=== PATIENT | male | born 1990 | race American Indian/Alaskan Native ===

== ENCOUNTER 2016-11-13 18:07 | Emergency (ER) | payer MEDICAID ==
[2016-11-13 18:33] LABS: Urine Drugs of Abuse Note Disclamer
[2016-11-13 18:50] LABS: Bilirubin,Urine NEG (Negative); Blood,Urine NEG (Negative); Ketones,Urine NEG (Negative); Leukocyte Esterase,Urine NEG (Negative); Mucus,Urine FEW /HPF; Nitrite,Urine NEG (Negative); Protein,Urine <15 mg/dL mg/dL (Negative); WBC,Urine < 1.0 /HPF (0.0-6.0)
[2016-11-13 19:06] LABS: Anion Gap 15 mmol/L; BUN/Creatinine Ratio 8.33; Blood Urea Nitrogen 10 mg/dL (9-20); Calcium 9.3 mg/dL (8.4-10.2); Carbon Dioxide 25 mmol/L (22-30); Chloride 104.1 mmol/L (98-107); Glucose 88 mg/dL (75-100); Potassium 4.1 mmol/L (3.6-5.0); Sodium 140 mmol/L (137-145)
[2016-11-13 19:22] LABS: Basophils % (Auto) 0.4 % (0.0-1.8); Eosinophils % (Auto) 2.4 % (0.0-4.3); Hematocrit 41.6 % (35.5-45.6); Hemoglobin 13.9 gm/dl (11.8-15.2); Mean Corpuscular HGB Conc 34 % (32-34); Mean Corpuscular Hemoglobin 31 pg (28-32); Mean Corpuscular Volume 93 fl (84-94); Platelet Count 169 K/mm3 (140-440); Red Blood Count 4.49 M/mm3 (3.65-5.03); Red Cell Distribution Width 14.2 % (13.2-15.2); White Blood Count 5.6 K/mm3 (4.5-11.0)
[2016-11-13 21:18] VITALS: BP 119/67
--- NOTE | 2016-11-13 21:55 | Emergency Department Report ---
ED Psych HPI - General Chief Complaint: Psych Stated Complaint: MH Time Seen by Provider: 11/13/16 19:27 Source: patient, EMS Mode of arrival: Stretcher - History of Present Illness Initial Comments: 26-year-old male with past medical history of depression presenting to the emergency department complaining of resolved SI. Patient states prior to emergency room arrival, he had received notification that he was no longer going to be considered for a job that he applied to. Patient states initially he was severely depressed and had thoughts of hurting himself however now he states that symptoms have resolved and he wants to reapply to other jobs and is motivated to find the right job that is a good fit for his lifestyle and his career. Patient is currently denying SI/HI/AH/VH. Patient denies drug use and states he has no access to weapons. MD Complaint: feels depressed -: Sudden Associated Psychiatric Symptoms: none Quality: resolved prior to arrival Worsens With: none Context: significant life stressor (rejected.) Associated Symptoms: denies other symptoms Treatments Prior to Arrival: none - Related Data Allergies Allergy/AdvReac Type Severity Reaction Status Date / Time No Known Allergies Allergy Unverified 10/04/14 22:58 ED Review of Systems ROS: Stated complaint: MH Other details as noted in HPI Comment: All other systems reviewed and negative Constitutional: denies: chills, fever Eyes: denies: eye pain, eye discharge, vision change ENT: denies: ear pain, throat pain Respiratory: denies: cough, shortness of breath, wheezing Cardiovascular: denies: chest pain, palpitations Endocrine: no symptoms reported Gastrointestinal: denies: abdominal pain, nausea, diarrhea Genitourinary: denies: urgency, dysuria Musculoskeletal: denies: back pain, joint swelling, arthralgia Skin: denies: rash, lesions Neurological: denies: headache, weakness, paresthesias Psychiatric: anxiety, depression. denies: auditory hallucinations, visual hallucinations, homicidal thoughts, suicidal thoughts Hematological/Lymphatic: denies: easy bleeding, easy bruising ED Past Medical Hx - Past Medical History Previous Medical History?: Yes Hx Psychiatric Treatment: Yes Additional medical history: schizophrenia. bipolar - Surgical History Past Surgical History?: No - Social History Smoking Status: Never Smoker Substance Use Type: None ED Physical Exam - General Limitations: No Limitations General appearance: alert, in no apparent distress - Head Head exam: Present: atraumatic, normocephalic - Eye Eye exam: Present: normal appearance - ENT ENT exam: Present: mucous membranes moist - Neck Neck exam: Present: normal inspection - Respiratory Respiratory exam: Present: normal lung sounds bilaterally. Absent: respiratory distress - Cardiovascular Cardiovascular Exam: Present: regular rate, normal rhythm. Absent: systolic murmur, diastolic murmur, rubs, gallop - GI/Abdominal GI/Abdominal exam: Present: soft, normal bowel sounds - Rectal Rectal exam: Present: deferred - Extremities Exam Extremities exam: Present: normal inspection - Back Exam Back exam: Present: normal inspection - Neurological Exam Neurological exam: Present: alert, oriented X3 - Psychiatric Psychiatric exam: Present: normal affect, normal mood, depressed. Absent: flat affect, manic, homicidal ideation, suicidal ideation - Skin Skin exam: Present: warm, dry, intact, normal color. Absent: rash ED Course Vital Signs 11/13/16 11/13/16 11/13/16 18:25 18:30 19:00 Temperature 98.9 F 98 F Pulse Rate 111 H 93 H Respiratory 18 18 18 Rate Blood Pressure 112/74 119/67 [Right] O2 Sat by Pulse 100 100 97 Oximetry - Reevaluation(s) Reevaluation #1: 11/13/16 21:53 Patient has been evaluated by rehabilitation psychologist Nancy who agrees with me that he does not meet 1013 criteria at this time and he is at low risk to harm himself or anyone else. ED Medical Decision Making - Lab Data Result diagrams: 11/13/16 18:37 11/13/16 18:37 - Medical Decision Making 26-year-old male with psych history of depression presenting to the Emergency Department with resolved SI. Patient admits initially wanted to hurt himself however he thought about it deeply and instead of hurting himself he wants to try to apply for different jobs and follow-up with his psychiatrist. At this time patient is well-appearing, does not appear to be in any acute mental state and is stable for discharge home. Patient has been evaluated by rehabilitation psychologist Ms. Cruz who agrees with me, he does not meet 1013 criteria at this time. Patient verbalized understanding of return precautions. Critical Care Time: No Critical care attestation.: If time is entered above; I have spent that time in minutes in the direct care of this critically ill patient, excluding procedure time. ED Disposition Clinical Impression: Depression Disposition: DC-01 TO HOME OR SELFCARE Is pt being admited?: No Does the pt Need Aspirin: No Condition: Stable Instructions: Depression (ED) Referrals: PRIMARY CARE, [Primary Care Provider] - 3-5 Days NEHAL JACKSON MD [Staff Physician] - 24 Hours Time of Disposition: 21:56
== END 2016-11-13 22:30 | disposition home or self-care (01) ==
LOC: ED 18:07 → EEVIPCON 18:07 → ED 22:30
DX: F32.9 Major depressive disorder, single episode, unspecified (principal); F31.9 Bipolar disorder, unspecified; F20.9 Schizophrenia, unspecified
CPT/HCPCS: 36415; 80048; 80307; 81001; 85025; 99284; G0480; 80320

== ENCOUNTER 2018-09-01 12:40 | Emergency (ER) | payer MEDICAID ==
[2018-09-01] MEDS ORDERED: HALDOL IM PRN (13:32)
[2018-09-01] MEDS ORDERED: ATIVAN IM PRN (13:32)
--- NOTE | 2018-09-01 13:36 | Emergency Department Report ---
ED General Adult HPI - General Chief complaint: Psych Stated complaint: PSYCH Time Seen by Provider: 09/01/18 13:24 Source: patient, EMS (ems notes not available at time of chart dictation) Mode of arrival: Stretcher Limitations: No Limitations - History of Present Illness Initial comments: This is a 28-year-old gentleman, presenting to the emergency room with complaints of suicidality. He is also asking if he can get a new place to live. He denies physical pain. He reports no exacerbating or relieving factors to his symptoms. He denies hallucinations, denies intention to overdose, and denies access to guns or firearms. -: Gradual Consistency: constant Improves with: none Associated Symptoms: denies other symptoms - Related Data Allergies Allergy/AdvReac Type Severity Reaction Status Date / Time No Known Allergies Allergy Unverified 10/04/14 22:58 ED Review of Systems ROS: Stated complaint: PSYCH Other details as noted in HPI Constitutional: denies: fever Eyes: denies: eye discharge ENT: denies: epistaxis Respiratory: denies: cough Cardiovascular: denies: chest pain Gastrointestinal: denies: abdominal pain Genitourinary: denies: dysuria Musculoskeletal: denies: back pain Skin: denies: lesions Neurological: denies: weakness Psychiatric: suicidal thoughts ED Past Medical Hx - Past Medical History Previous Medical History?: Yes Hx Psychiatric Treatment: Yes (Autism,depression, schizophrenia, suicidal) Additional medical history: schizophrenia. bipolar - Social History Smoking Status: Never Smoker Substance Use Type: None ED Physical Exam - General Limitations: No Limitations General appearance: alert, in no apparent distress - Head Head exam: Present: atraumatic, normocephalic - Eye Eye exam: Present: normal appearance, EOMI. Absent: nystagmus - ENT ENT exam: Present: normal exam, normal orophraynx, mucous membranes moist, normal external ear exam - Neck Neck exam: Present: normal inspection, full ROM. Absent: tenderness, meningismus - Respiratory Respiratory exam: Present: normal lung sounds bilaterally. Absent: respiratory distress, chest wall tenderness - Cardiovascular Cardiovascular Exam: Present: regular rate, normal rhythm, normal heart sounds. Absent: bradycardia, tachycardia, irregular rhythm, systolic murmur, diastolic murmur, rubs, gallop - GI/Abdominal GI/Abdominal exam: Present: soft. Absent: distended, tenderness, guarding, rebound, rigid, pulsatile mass - Rectal Rectal exam: Present: deferred - Extremities Exam Extremities exam: Present: normal inspection, full ROM, other (2+ pulses noted in the bilateral upper, lower extremities. Compartments soft. No long bony tenderness. The pelvis is stable.). Absent: pedal edema, joint swelling, calf tenderness - Back Exam Back exam: Present: normal inspection, full ROM. Absent: tenderness, CVA tenderness (R), paraspinal tenderness, vertebral tenderness - Neurological Exam Neurological exam: Present: alert, oriented X3, normal gait, other (Extraocular movements intact. Tongue midline. No facial droop. Facial sensation intact to light touch in the V1, V2, V3 distribution bilaterally. 5 and 5 strength in 4 extremities.. Sensation is intact to light touch in 4 extremities.). Absent: motor sensory deficit - Psychiatric Psychiatric exam: Present: suicidal ideation - Skin Skin exam: Present: warm, dry, intact, normal color. Absent: rash ED Course Vital Signs 09/01/18 09/01/18 13:36 14:15 Temperature 97.4 F L 97.4 F L Pulse Rate 71 71 Respiratory 16 16 Rate Blood Pressure 109/63 109/63 [Left] O2 Sat by Pulse 100 100 Oximetry - Reevaluation(s) Reevaluation #1: 09/01/18 13:54 Differential diagnosis, including not limited to: Depression, suicidality, mood disorder, malingering, secondary gain Assessment and plan: 28-year-old gentleman with a primary complaint of wanting a new place to live, no obvious evidence of external physical abuse, with another complaint of suicidality. I suspect that the patient is primarily motivated by secondary gain. Nevertheless, given his endorsement of suicidality, he will be placed on a 1013. His physical examination is benign and unremarkable. Appropriate screening laboratory studies have been requested. Psychiatric consultation in case medicine consultation has been requested. Nursing team has been requested to reconcile the patient's medications. Reevaluation #2: 09/01/18 16:30 Patient resting comfortably, in stretcher, and is in no acute distress. Screening laboratory studies are unremarkable. We have requested that nursing team for medication reconciliation. At this point in time, it is not appear to be an immediate medical contraindication to psychiatric admission, evaluation, consultation. The crisis team has been paged, informed. ED Medical Decision Making - Lab Data Result diagrams: 09/01/18 13:47 09/01/18 13:47 Critical care attestation.: If time is entered above; I have spent that time in minutes in the direct care of this critically ill patient, excluding procedure time. ED Disposition Clinical Impression: Medical clearance for psychiatric admission Disposition: [id number]/TX-65 PSY HOSP/PSY UNIT Is pt being admited?: No Does the pt Need Aspirin: No Condition: Stable
[2018-09-01 14:11] LABS: Hematocrit 42.7 % (35.5-45.6); Hemoglobin 14.3 gm/dl (11.8-15.2); Mean Corpuscular HGB Conc 34 % (32-34); Mean Corpuscular Volume 96 fl (84-94); Platelet Count 201 K/mm3 (140-440); Red Blood Count 4.47 M/mm3 (3.65-5.03); Red Cell Distribution Width 13.4 % (13.2-15.2)
[2018-09-01 14:23] LABS: Bilirubin,Urine NEG (Negative); Blood,Urine NEG (Negative); Color,Urine Yellow (Yellow); Mucus,Urine 1+ /HPF; Protein,Urine <15 mg/dL mg/dL (Negative); WBC,Urine < 1.0 /HPF (0.0-6.0)
[2018-09-01 14:28] LABS: BUN/Creatinine Ratio 6; Blood Urea Nitrogen 7 mg/dL (9-20); Calcium 9.7 mg/dL (8.4-10.2); Hemolysis Index 7
[2018-09-01 14:31] LABS: Amphetamine Screen,Urine PRESUMPTIVE NEGATIVE; Benzodiazepines Screen,Urine PRESUMPTIVE NEGATIVE; Cannabinoid Screen,Urine PRESUMPTIVE NEGATIVE; Cocaine Screen,Urine PRESUMPTIVE NEGATIVE; Methadone Screen,Urine PRESUMPTIVE NEGATIVE; Opiate Screen,Urine PRESUMPTIVE NEGATIVE
--- NOTE | 2018-09-02 11:37 | Consultation ---
History of Present Illness - Reason for Consult Consult date: 09/02/18 Reason for consult: Mental Health Evaluation Requesting physician: JOSÉ BYERS - Chief Complaint Chief complaint: "I say what I need to say to get what I want" - History of Present Psychiatric Illness 28 y.o. AA male who presented to the ER for SI's. Today the patient is calm and cooperative during the assessment. He stated that he mentioned to the ER Physician that he was suicidal so he could be able to see the mental health team. He stated that he do not like where he currently reside. He felt like if he gestured SI's and see psych social worker, he will not have to return to the his residence. He was told that he did not have to say he's was suicidal to get assistance, he stated, "I understand sir, can I get some help." He denies being suicidal yesterday when asked. He stated that he is seen by Dr Gomez (psychiatrist) for outpatient psy services. He denies SI/HI's and AVH's. Medications and Allergies Allergies Allergy/AdvReac Type Severity Reaction Status Date / Time No Known Allergies Allergy Unverified 10/04/14 22:58 Home Medications Medication Instructions Recorded Confirmed Last Taken Type Citalopram Hydrobromide [Celexa] 40 mg PO 09/01/18 1 Day Ago History ~08/31/18 Proventil Hfa 90 mcg INHALATION 4XD 09/01/18 09/01/18 09/01/18 08:00 History Quetiapine Fumarate [Seroquel] 100 mg PO 09/01/18 1 Day Ago History ~08/31/18 Quetiapine Fumarate [Seroquel] 300 mg PO HS 09/01/18 09/01/18 08/31/18 20:00 History carBAMazepine [Tegretol] 200 mg PO 09/01/18 09/01/18 08:00 History clonazePAM [Clonazepam] 1 mg PO 09/01/18 1 Day Ago History ~08/31/18 lamoTRIgine [Lamictal] 200 mg PO 09/01/18 1 Day Ago History ~08/31/18 medroxyPROGESTERone ACETATE 10 mg PO 09/01/18 1 Day Ago History [Medroxyprogesterone Acetate] ~08/31/18 Active Meds: Active Medications Haloperidol Lactate (Haldol) 5 mg IM Q6HR PRN PRN Reason: Agitation Lorazepam (Ativan) 2 mg IM Q4HR PRN PRN Reason: Agitation Past psychiatric history - Past Medical History Past Medical History: No medical history Past Surgical History: No surgical history - past Psychiatric treatment and history psychiatric treatment history: He is sure of his mental renzo dx. Denies a fam psy hx - Social History Social history: other ([facility] at a senior care) Mental Status Exam - Vital signs Last Vital Signs Temp 98.5 F 09/02/18 09:03 Pulse 76 09/02/18 09:03 Resp 18 09/02/18 09:03 BP 111/70 09/02/18 09:03 Pulse Ox 100 09/02/18 09:03 - Exam Narrative exam: MSE: Appearance: calm, cooperative Behavior: regular eye contact Speech: regular rate and tone Mood:: "okay" Affect: congruent to mood Thought Process: logical Thought Content: denies SI/HI's and AVH's Motor Activity: sitting up in bed Cognition: A/O x3 Insight: appropriate Judgment: appropriate Results Result Diagrams: 09/01/18 13:47 09/01/18 13:47 Abnormal lab results 09/01/18 09/01/18 09/01/18 Range/Units 13:47 13:47 13:47 MCV 96 H (84-94) fl BUN 7 L (9-20) mg/dL Glucose 74 L (75-100) mg/dL Ur Specific Emmalena (1.003-1.030) Salicylates < 0.3 L (2.8-20.0) mg/dL Acetaminophen (10.0-30.0) ug/mL 09/01/18 09/01/18 Range/Units 13:47 Unknown MCV (84-94) fl BUN (9-20) mg/dL Glucose (75-100) mg/dL Ur Specific Emmalena 1.033 H (1.003-1.030) Salicylates (2.8-20.0) mg/dL Acetaminophen < 5.0 L (10.0-30.0) ug/mL All other labs normal. Assessment and Plan Assessment and plan: Impression: The patient is calm and cooperative during the assessment. Recommendation/Plan: Rescind 1013. Dispo: The patient can can follow up with Dr Gomez his psychiatrist for outpatient psy services. Case Mgmt involvement, the patient may need assistance with placement. Staffed with Dr Sangeeta Staley.
[2018-09-02 19:08] VITALS: BP 105/72
== END 2018-09-02 17:13 ==
LOC: EEVIPCON 12:40 → ED 12:40
DX: F32.9 Major depressive disorder, single episode, unspecified (principal); F20.9 Schizophrenia, unspecified; F84.0 Autistic disorder
CPT/HCPCS: 36415; 80048; 80307; 81001; 82550; 85027; 99284; G0480; 80320